=== PATIENT | female | born 1955 | race Caucasian/White ===

== ENCOUNTER 2021-02-10 05:57 | Day surgery (SDC) | payer MEDICARE, OTHER ==
[~2021-02-10] VITALS: Ht 162.6 cm; Wt 56.0 kg
[2021-02-10] MEDS ORDERED: RISP1TAB90 PO (07:13)
[2021-02-10] MEDS ORDERED: LISI1TAB20 PO (07:13)
[2021-02-10] MEDS ORDERED: LORA-445 PO (07:13)
[2021-02-10 07:48] VITALS: BP 143/88
[2021-02-10 08:00] LABS: INTERNATIONAL NORMALIZED RATIO 1.08 (0.93-1.1); PROTHROMBIN TIME 11.5 Seconds (9.6-11.5)
[2021-02-10] MEDS ORDERED: SODIUM CHLORIDE 0.9% 1,000 ML IV SCH (08:00)
[2021-02-10] MEDS ORDERED: LIDOCAINE 1%, 10ML ONE (08:11)
[2021-02-10] MEDS ORDERED: MIDAZOLAM 1 MG/ML, 5ML ONE (08:22)
[2021-02-10] MEDS ORDERED: FLUMAZENIL 0.1 MG/1 ML, 5ML ONE (08:23)
[2021-02-10] MEDS ORDERED: FENTANYL PF 100 MCG/2ML ONE (08:23)
[2021-02-10] MEDS ORDERED: NALOXONE 1 MG/ML, 2ML ONE (08:23)
== END 2021-02-10 10:08 | disposition home or self-care (01) ==
LOC: OUT 05:57
PROVIDERS: ATTEND Obstetrics & Gynecology
DX: R93.5 Abnormal findings on diagnostic imaging of other abdominal regions, including retroperitoneum (principal); C78.7 Secondary malignant neoplasm of liver and intrahepatic bile duct; I10 Essential (primary) hypertension; F41.9 Anxiety disorder, unspecified; F12.90 Cannabis use, unspecified, uncomplicated; Z79.01 Long term (current) use of anticoagulants; Z79.899 Other long term (current) drug therapy; Z88.5 Allergy status to narcotic agent; Z91.041 Radiographic dye allergy status; Z80.0 Family history of malignant neoplasm of digestive organs
CPT/HCPCS: 36415; 47000; 76942; 85610; 88307; 88341; 88342; 99156; J2250; J3010; J7030; 99157; J2310